=== PATIENT | female | born 1960 | race Hispanic/Latino ===

== ENCOUNTER 2016-09-24 18:59 | Emergency (ER) | payer OTHER ==
[2016-09-24 19:10] VITALS: BP 114/78
[2016-09-24 19:38] LABS: Hematocrit 42.8 % (30.3-42.9); Hemoglobin 14.1 gm/dl (10.1-14.3); Mean Corpuscular HGB Conc 33 % (30-34); Mean Corpuscular Hemoglobin 29 pg (28-32); Mean Corpuscular Volume 89 fl (79-97); Platelet Count 189 K/mm3 (140-440); Red Blood Count 4.84 M/mm3 (3.65-5.03); Red Cell Distribution Width 15.5 % (13.2-15.2); White Blood Count 2.6 K/mm3 (4.5-11.0)
[2016-09-24 19:48] LABS: Alanine Aminotransferase 70 units/L (7-56); Albumin 3.7 g/dL (3.9-5); Albumin/Globulin Ratio 1.3 %; Alkaline Phosphatase 198 units/L (35-129); Amylase 139 units/L (27-131); Anion Gap 20 mmol/L; BUN/Creatinine Ratio 12.85; Blood Urea Nitrogen 9 mg/dL (7-17); Calcium 8.5 mg/dL (8.4-10.2); Carbon Dioxide 22 mmol/L (22-30); Chloride 100.2 mmol/L (98-107); Glucose 126 mg/dL (65-100); Potassium 3.4 mmol/L (3.6-5.0); Sodium 139 mmol/L (137-145); Total Protein 6.6 g/dL (6.3-8.2)
[2016-09-24 20:35] LABS: Bilirubin,Urine SM (Negative); Blood,Urine NEG (Negative); Ketones,Urine 20 mg/dL (Negative); Leukocyte Esterase,Urine TR (Negative); Mucus,Urine 3+ /HPF; Nitrite,Urine NEG (Negative); Urobilinogen,Urine < 2.0 mg/dL (<2.0)
--- NOTE | 2016-09-25 07:40 | XRay Report ---
ROUTINE CHEST, TWO VIEWS: HISTORY: Productive cough. The trachea, heart, mediastinal contour, lung roberts and bony thorax are unremarkable. No significant change since 05/03/16. IMPRESSION: Unremarkable chest x-ray.
--- NOTE | 2016-09-30 20:35 | ED Elopement Review ---
ED Pt Elopement review - Results review Lab results: Laboratory Tests 09/24/16 09/24/16 09/24/16 19:15 19:15 Unknown WBC 2.6 L RBC 4.84 Hgb 14.1 Hct 42.8 MCV 89 MCH 29 MCHC 33 RDW 15.5 H Plt Count 189 Sodium 139 Potassium 3.4 L Chloride 100.2 Carbon Dioxide 22 Anion Gap 20 BUN 9 Creatinine 0.7 Estimated GFR > 60 BUN/Creatinine Ratio 12.85 Glucose 126 H Calcium 8.5 Total Bilirubin 0.20 AST 47 H ALT 70 H Alkaline Phosphatase 198 H Total Protein 6.6 Albumin 3.7 L Albumin/Globulin Ratio 1.3 Amylase 139 H Urine Color Olivia Urine Turbidity Clear Urine pH 5.0 Ur Specific [place] 1.034 H Urine Protein 100 mg/dl Urine Glucose (UA) Neg Urine Ketones 20 Urine Blood Neg Urine Nitrite Neg Urine Bilirubin Sm Urine Ictotest Negative Urine Urobilinogen < 2.0 Ur Leukocyte Esterase Tr Urine WBC (Auto) 10.0 H Urine RBC (Auto) 6.0 U Epithel Cells (Auto) 2.0 Urine Mucus 3+ - Call Back decision Pt Call Back Decision: Pt to F/U with PMD (abnormal lab values)
== END 2016-09-24 23:45 | disposition left against medical advice (07) ==
LOC: ED 18:59
DX: J11.1 Influenza due to unidentified influenza virus with other respiratory manifestations (principal); Z53.21 Procedure and treatment not carried out due to patient leaving prior to being seen by health care provider
CPT/HCPCS: 36415; 71020; 80053; 81001; 82150; 85027